=== PATIENT | male | born 1950 | race Caucasian/White ===

== ENCOUNTER 2018-02-13 06:28 | Day surgery (SDC) | payer MEDICARE ==
[2018-02-10 12:18] LABS: Absolute Lymphocytes (CBC) 2.8 K/uL (0.7-4.9); Absolute Monocytes 0.6 K/uL (0.1-1.3); Absolute Neutrophil 4.6 K/uL (1.8-8.0); Basophils % 0.5 % (0-1.3); Eosinophils % 3.3 % (0-4.4); Hematocrit 41.2 % (39.6-49.0); Lymphocytes % 33.9 % (15.3-44.8); MCH 33.1 pg (27.0-35.0); MCV 96.3 fL (80-100); MPV 8.2 fL (7.6-11.3); Monocytes % 7.1 % (3.3-12.3); RBC Red Blood Cell Count 4.27 M/uL (4.33-5.43)
[2018-02-10 12:34] LABS: Protime INR 0.96
[2018-02-13] MEDS ORDERED: LIDOCAINE 1% MPF 30 ML VIAL ONE (07:00)
[2018-02-13] MEDS ORDERED: HEPA 1000U/500MLS 1,000 UNIT/500 ML BAG IV ONE (07:00)
[2018-02-13] MEDS ORDERED: NA CHLORIDE 0.9% 500 ML ONE (07:06)
[2018-02-13] MEDS ORDERED: NA CHLORIDE 0.9% 0 ML ONE (07:23)
[2018-02-13] MEDS ORDERED: ATROPINE SULF 1 MG/10 ML SYR IV ONE (07:23)
[2018-02-13] MEDS ORDERED: MIDAZOLAM HCL 2 MG/2 ML INJ ONE ×2 (07:30→07:36)
[2018-02-13] MEDS ORDERED: FENTANYL CITR 100 MCG/2 ML ONE (07:31)
--- NOTE | 2018-02-13 12:37 | OP ---
Date of Procedure: 02/13/2018 Surgeon: Severiano Rolon MD [employer] Technician: Riya Webster. Procedure: 1.Left heart catheterization. 2.Selective coronary arteriogram. Indication: Unstable angina. Procedure In Detail: The patient was brought in as an outpatient to the [facility], prepped and draped in the routine sterile fashion, given 4 mg of Versed and 50 of fentanyl for sedation. A 6-[place] sh eath introduced in the right common femoral artery without any difficulty. Angiogram there was luna l. Angio-Seal was used to close the case. Augusto catheters were used to do the diagnostic catheter ization. He was found to be right dominant, had 40% mid RCA stenosis, some diffuse distal plaquing i n the RCA, PDA region, normal LAD and circumflex. Complications: There were no complications. Blood Loss: 5 cc. Postoperative Diagnosis: Mild coronary artery disease. Plan: To continue medical therapy. I am going to have him increase his atorvastatin to 80 mg daily. Consider use of proton pump inhibitor. Total Conscious Sedation: 30 minutes. The patient will be going home today and he will see me in the office in the next 2 weeks. LINDSAY/RAFI Voice ID: [id number] Report ID: [id number]
== END 2018-02-13 09:56 | disposition home or self-care (01) ==
LOC: CCL 06:28
DX: I25.110 Atherosclerotic heart disease of native coronary artery with unstable angina pectoris (principal); I10 Essential (primary) hypertension; E78.5 Hyperlipidemia, unspecified; E78.6 Lipoprotein deficiency; G60.9 Hereditary and idiopathic neuropathy, unspecified; M15.0 Primary generalized (osteo)arthritis; Z87.891 Personal history of nicotine dependence
CPT/HCPCS: 36415; 80048; 85025; 85610; 85730; 93454; C1760; C1893; J2250 ×2; J3010; J0583